=== PATIENT | female | born 1990 | race Caucasian/White ===

== ENCOUNTER 2017-03-13 18:01 | Emergency (ER) | payer MEDICAID, OTHER ==
[~2017-03-13] VITALS: Ht 172.7 cm; Wt 82.0 kg
[2017-03-13 18:13] VITALS: BP 106/74
== END 2017-03-14 | disposition left against medical advice (07) ==
LOC: ER 23:41
DX: R42 Dizziness and giddiness (principal); Z53.21 Procedure and treatment not carried out due to patient leaving prior to being seen by health care provider